=== PATIENT | female | born 1990 | race Hispanic/Latino ===

== ENCOUNTER 2018-02-25 06:43 | Inpatient (IN) | payer MEDICAID ==
[~2018-02-25] VITALS: Ht 162.6 cm; Wt 88.0 kg
[2018-02-25] VITALS (9 sets, daily range): BP systolic 107–117; BP diastolic 57–76
[2018-02-25 07:15] LABS: APPEARANCE,URINE Cloudy (CLEAR); BILIRUBIN,URINE Negative (NEGATIVE); COLOR,URINE Yellow (YELLOW); GLUCOSE, URINE (UA) Negative (NEGATIVE); KETONES,URINE Negative (NEGATIVE); LEUKOCYTE ESTERASE ,URINE Small (NEGATIVE); NITRATE,URINE Negative (NEGATIVE); OCCULT BLOOD,URINE Negative (NEGATIVE); PH,URINE 6.5 (5.0-8.0); PROTEIN,URINE Trace (NEGATIVE)
[2018-02-25 07:21] LABS: BACTERIA,URINE Rare /HPF (None Seen); SQUAMOUS EPITHELIAL CELL,UR Many /HPF (0-2)
[2018-02-25 08:08] LABS: HEMATOCRIT 34.1 % (36-48); MEAN CORPUSCULAR VOLUME 85.1 fL (79-99); PLATELET COUNT (AUTO) 192 K/uL (130-400); RED BLOOD CELL COUNT(AUTO) 4.01 MIL/uL (4.00-5.50); RED CELL DISTRIBUTION WIDTH 13.9 % (11.0-15.5); WHITE BLOOD COUNT (AUTO) 8.3 K/uL (4.8-10.8)
[2018-02-25] MEDS ORDERED: LACTATED RINGERS 1000ML 1,000 ML IV PRN (08:18)
[2018-02-25] MEDS ORDERED: LACTATED RINGERS 1000ML 1,000 ML IV ONE (08:19)
[2018-02-25] MEDS ORDERED: OXYTOCIN 10 USP UNITS/ML ONE ×3 (08:20→17:14)
[2018-02-25] MEDS ORDERED: AMPICILLIN 2GM+NS 100ML 100 ML IV SCH (08:30)
[2018-02-25] MEDS ORDERED: AMPICILLIN 1GM+NS 50ML 50 ML IV SCH (08:30)
[2018-02-25] MEDS ORDERED: MEPERIDINE-PF 50 MG/ML SYG ONE (10:22)
[2018-02-25] MEDS ORDERED: PROMETHAZINE HCL 25 MG/ML 1ML AMPULE IM ONE (10:22)
[2018-02-25] MEDS ORDERED: PROMETHAZINE HCL 25 MG/ML 1ML AMPULE IM SCH (10:30)
[2018-02-25] MEDS ORDERED: MEPERIDINE-PF 50 MG/ML SYG IVP SCH (10:30)
[2018-02-25] MEDS ORDERED: LIDOCAINE HCL 1% 20 ML VIAL ONE (11:06)
[2018-02-25] MEDS: OXYTOCIN 10 USP UNITS/ML 20 UNIT in LACTATED RINGERS 1000ML 1,000 ML IV SCH ×2 (11:45→13:16)
[2018-02-25] MEDS ORDERED: PREN1COM14 PO (12:27)
[2018-02-25] MEDS ORDERED: LANOLIN 30GM OINTMENT TP PRN (12:30)
[2018-02-25] MEDS ORDERED: MEASLES/MUMPS/RUBELLA VACCINE, LIVE 0.5 ML/VIAL SQ PRN (12:30)
[2018-02-25] MEDS ORDERED: WITCH HAZEL 1 PAD TP PRN (12:30)
[2018-02-25] MEDS ORDERED: BENZOCAINE/LANOLIN/ALOE VERA 60 ML AEROSOL TP PRN (12:30)
[2018-02-25] MEDS: OXYTOCIN-LR 20 UNITS/1000 ML 1,000 ML IV SCH ×2 (12:30→17:24)
[2018-02-25] MEDS ORDERED: DIPH,PERTUSS(ACELL),TET VAC/PF 0.5 ML VIAL IM PRN (12:30)
[2018-02-25] MEDS: IBUPROFEN 600 MG TABLET PO PRN ×2 (12:48→18:55)
[2018-02-25] MEDS: DOCUSATE SODIUM 100 MG CAP PO SCH (20:29)
[2018-02-26] MEDS: IBUPROFEN 600 MG TABLET PO PRN ×3 (01:31→16:41)
[2018-02-26 03:25] VITALS: BP 99/60
[2018-02-26 05:12] LABS: HEMATOCRIT 26.9 % (36-48); MEAN CORPUSCULAR HEMOGLOBIN 30.6 pg (27.0-33.0); MEAN CORPUSCULAR HGB CONC 35.8 g/dL (32.0-36.0); MEAN CORPUSCULAR VOLUME 85.4 fL (79-99); PLATELET COUNT (AUTO) 175 K/uL (130-400); RED BLOOD CELL COUNT(AUTO) 3.15 MIL/uL (4.00-5.50); RED CELL DISTRIBUTION WIDTH 13.7 % (11.0-15.5); WHITE BLOOD COUNT (AUTO) 10.8 K/uL (4.8-10.8)
[2018-02-26 07:23] VITALS: BP 101/56
[2018-02-26] MEDS ORDERED: BISACODYL 10 MG SUPP.RECT RC PRN (08:15)
[2018-02-26 08:21] LABS: HEPATITIS Bs ANTIGEN SCREEN P Negative (Negative)
[2018-02-26] MEDS: DOCUSATE SODIUM 100 MG CAP PO SCH ×2 (09:16→20:56)
[2018-02-26 12:09] VITALS: BP 113/68
[2018-02-26 16:03] VITALS: BP 108/67
[2018-02-26 20:15] VITALS: BP 104/65
[2018-02-26 23:55] VITALS: BP 118/72
[2018-02-27] MEDS: IBUPROFEN 600 MG TABLET PO PRN ×2 (00:40→08:33)
[2018-02-27 04:25] VITALS: BP 101/67
[2018-02-27 07:42] VITALS: BP 106/70
[2018-02-27] MEDS: DOCUSATE SODIUM 100 MG CAP PO SCH (08:32)
[2018-02-27 11:56] VITALS: BP 97/64
== END 2018-02-27 13:55 | disposition home or self-care (01) | DRG 560 ==
LOC: LDH 06:43 → OBSVTOIN 06:43 → LDH 08:29 → WSH 12:11
PROVIDERS: ADMIT Obstetrics & Gynecology; ATTEND Obstetrics & Gynecology
PROC: 0HQ9XZZ Repair Perineum Skin, External Approach (ICD-10-PCS; principal; 2018-02-25)
PROC: 10E0XZZ Delivery of Products of Conception, External Approach (ICD-10-PCS; 2018-02-25)
PROC: 3E0234Z Introduction of Serum, Toxoid and Vaccine into Muscle, Percutaneous Approach (ICD-10-PCS; 2018-02-25)
PROC: 3E0234Z Introduction of Serum, Toxoid and Vaccine into Muscle, Percutaneous Approach (ICD-10-PCS; 2018-02-25)
PROC: 10907ZC Drainage of Amniotic Fluid, Therapeutic from Products of Conception, Via Natural or Artificial Opening (ICD-10-PCS; 2018-02-25)
DX: O99.824 Streptococcus B carrier state complicating childbirth (principal); Z23 Encounter for immunization; O70.0 First degree perineal laceration during delivery; Z37.0 Single live birth
CPT/HCPCS: 36415; 81001; 85027; 86592; 86850; 86900; 86901; 87340; 90707; 90715; A4351; J0290; J2175; J2550; J2590; J7120